=== PATIENT | female | born 1970 | race Caucasian/White ===

== ENCOUNTER 2017-10-20 18:02 | Emergency (ER) | payer OTHER ==
[~2017-10-20] VITALS: Ht 160 cm; Wt 107.5 kg
[2017-10-20 18:11] VITALS: BP 168/74
[2017-10-20] MEDS ORDERED: LISINOPRIL5 MG PO (18:14)
[2017-10-20] MEDS ORDERED: PROTONIX 20 MG20 M1 PO (18:14)
[2017-10-20] MEDS ORDERED: CYMBALTA30 MG PO (18:14)
[2017-10-20] MEDS ORDERED: BACTRIM DS TAB1 EACH PO (18:26)
[2017-10-20] MEDS ORDERED: KEFLEX500 M1 PO (18:26)
== END 2017-10-20 18:32 | disposition home or self-care (01) ==
LOC: M.ERS 18:02
DX: L03.113 Cellulitis of right upper limb (principal); I10 Essential (primary) hypertension; K21.9 Gastro-esophageal reflux disease without esophagitis; F17.210 Nicotine dependence, cigarettes, uncomplicated